=== PATIENT | female | born 1955 | race Caucasian/White ===

== ENCOUNTER 2019-03-15 07:17 | Emergency (ER) | payer OTHER, MEDICARE ==
--- NOTE | 2019-03-15 07:36 | PDOC ---
History of Present Illness - General Chief Complaint: Pain Stated Complaint: ABDOMINAL PAIN Time Seen by Provider: 03/15/19 07:36 History Source: Patient Exam Limitations: No Limitations - History of Present Illness Initial Comments: Pt is a 64 yo F, with PMH of stable thyroid nodules, stress incontinence, remote pill esophagitis and dermoid cyst removal, who is presenting with complaints of diffuse lower abdominal pain x4 days, which is worst in the LLQ and is intermittent. Pt states the pain is worsened mildly after eating food, but has been tolerating PO food and fluid intake as usual. Pt also endorses decreasing BMs in this time period, with passing of "just mucus" last night, with no bleeding. Pt endorses urinary frequency more than baseline, but denies hematuria or burning. Pt denies any recent fevers/chills, headache, vision changes, syncope, chest pain, palpitations, SOB, nausea/vomiting, diarrhea, or leg swelling. Allergies: NKDA PCP: Dr. Dodge GI: Dr. Higginbotham -- spoke with pt, suggested pt come to ER for diverticulitis w/ u and is aware. Social: Pt denies any cigarette, alcohol, or drug use. Pt denies any recent travel or sick contacts. Surgical: remote lap dermoid cyst removal Family: no relevant history. 03/15/19 08:03 Past History - Travel Traveled outside of the country in the last 30 days: No Close contact w/someone who was outside of country & ill: No - Past Medical History Allergies/Adverse Reactions: Allergies Allergy/AdvReac Type Severity Reaction Status Date / Time No Known Allergies Allergy Verified 03/15/19 07:49 Home Medications: Ambulatory Orders Ciprofloxacin [Cipro -] 500 mg PO Q12H 7 Days #14 tablet 03/15/19 metroNIDAZOLE [Flagyl -] 500 mg PO TID #21 tablet 03/15/19 Review of Systems - Review of Systems Able to Perform ROS?: Yes Is the patient limited Kinyarwanda proficient: No Constitutional: Yes: Weight Stable. No: Chills, Diaphoresis, Fever, Loss of Appetite, Malaise, Weakness HEENTM: No: Recent change in vision, Nose Congestion, Throat Pain, Throat Swelling, Difficulty Swallowing Respiratory: No: Cough, Orthopnea, Shortness of Breath Cardiac (ROS): No: Chest Pain, Edema, Irregular Heart Rate, Lightheadedness, Palpitations, Syncope, Chest Tightness ABD/GI: Yes: Constipated. No: Diarrhea, Nausea, Poor Appetite, Poor Fluid Intake, Vomiting, Indigestion, Abdominal cramping : Yes: Frequency. No: Burning, Dysuria, Flank Pain, Hematuria, Pain, Urgency Musculoskeletal: No: Back Pain, Joint Pain, Muscle Pain, Muscle Weakness Integumentary: No: Rash Neurological: No: Headache, Numbness, Weakness, Unsteady Gait, Dizziness Psychiatric: No: Sleep Pattern Change, Change in Appetite Endocrine: No: Increased Urine, Change in Weight Hematologic/Lymphatic: No: Anemia, Blood Clots, Easy Bleeding, Easy Bruising All Other Systems: Reviewed and Negative *Physical Exam - Physical Exam Comments: Vitals stable, pt afebrile. Pt in NAD, ambulatory in ED. Normal body habitus. Pt alert and oriented x3. water tester generally intact, muscular strength and sensation intact. No midline spinal tenderness, step-offs, or crepitus. Head normocephalic, atraumatic. Eyes PERRLA, EOMI. Oropharynx without erythema or exudates, no LAD b/l. No nasal congestion. Hearing intact. Clear heart sounds, S1/S2, no JVD, b/l pedal edema, or heart murmur. Clear lung sounds, no respiratory distress, wheezes, crackles, or accessory muscle use. Lower abdominal TTP diffusely, worse in LLQ. No CVA tenderness to palpation, no rebound, no guarding. Abdomen soft, non-distended, and with hyperactive bowel sounds. Skin without jaundice or rash. 03/15/19 08:15 ED Treatment Course - LABORATORY CBC & Chemistry Diagram: 03/15/19 08:03 03/15/19 08:03 Medical Decision Making - Medical Decision Making Pt was seen at bedside, also will be seen by attending Dr. Leach. Pt presenting with diffuse lower abdominal pain, urinary frequency, and decreasing BMs, consistent story for diverticulitis vs UTI. Pt has no Afib, no HTN/DM, non- smoker, lower risk for ischemia. TTP also reproducible on exam. Will evaluate with labs, UA/urine culture, and CT abd/pelvis with IV contrast if renal function is sufficient. Provided 1 L IV NS and IV ofirmev for improvement of pain and hydration. Will continue to reassess pt and monitor for symptomatic improvement. 03/15/19 08:18 CBC and CMP WNL -- renal function WNL, also providing IVF hydration. Pt declined tylenol for pain UA without evidence of infection Pt going for CT abd/pelvis with IV contrast to evaluate for diverticulitis vs obstruction 03/15/19 08:53 CT abd/pelvis showed liver cyst--pt aware and follows with DR. Higginbotham; also showed acute diverticulitis. Providing first dose of PO cipro and flagyl in ER. Sent additional abx to pt pharmacy. Pt can f/u with PCP, strict return precautions provided with pt understanding. Attempted to call PCP office x3 to make him aware; busy signal at the office number, was unable to leave message. 03/15/19 10:33 Discharge - Discharge Information Problems reviewed: Yes Clinical Impression/Diagnosis: Diverticulitis Condition: Good Disposition: HOME - Admission No - Additional Discharge Information Prescriptions: Ciprofloxacin [Cipro -] 500 mg PO Q12H 7 Days #14 tablet metroNIDAZOLE [Flagyl -] 500 mg PO TID #21 tablet - Follow up/Referral Referrals: Yann Dodge MD [Staff Physician] - Lupillo Higginbotham MD [Staff Physician] - - Patient Discharge Instructions Patient Printed Discharge Instructions: DI for Diverticulitis Additional Instructions: You were seen in the ER today for abdominal pain. The results of your labs and imaging today showed diverticulitis and a liver cyst. Please follow-up with your primary care doctor and GI (Dr. Higginbotham) within 1-2 days to discuss your visit and make sure your symptoms have improved. Please return to the ER if you have any worsening pain, development of fevers or chills, loss of consciousness , inability to tolerate food or fluids, or any other concerns. I have sent medications to your pharmacy. Please take these medications as prescribed. - Post Discharge Activity
[2019-03-15 07:43] VITALS: BMI 28.3
[2019-03-15] MEDS ORDERED: SODIUM CHLORIDE 1,000 ML IV STA (07:56)
[2019-03-15] MEDS ORDERED: ACETAMINOPHEN 1000 MG/100 ML VIAL (NON FORMULARY) IVPB ONE (07:56)
--- NOTE | 2019-03-15 08:02 | PDOC ---
Attending Attestation - Resident Resident Name: Ely Jc - HPI HPI: 03/15/19 10:33 Pt presents to the ED complaining of diffuse lower abdominal pain along with increased flatulence and decreased appetite. Denies fever, nausea or vomiting. States that she has been tolerating PO, although with decreased appetite. Sent by Dr. Farley for rule out diverticulitis. - Physicial Exam PE: 03/15/19 10:43 Agree with resident exam. patient is well appearing and in no acute distress. Abdomen is soft, non tender, non distended without guarding or rebound. - Medical Decision Making 03/15/19 10:43 Pt presents to the ED complaining of diffuse abdominal pain. CT shows diverticulitis. BEcuase patient is tolerating PO and has no fever, will treat with cipro and flagyl and discharge home. Patient instructed to return to the ED for fever, nausea and vomiting, other worsening symptoms.
[2019-03-15 08:26] LABS: BASO % 0.5 % (0-2.0); EOS % 2.3 % (0-4.5); HEMATOCRIT 34.9 % (32.4-45.2); HEMOGLOBIN 11.9 GM/dL (10.7-15.3); MCH 29.5 pg (25.7-33.7); MEAN CELL VOLUME 86.6 fl (80-96); MEAN PLT VOLUME 7.5 fl (7.5-11.1); MONO % 8.9 % (3.8-10.2); NEUT % 75.3 % (42.8-82.8); PLATELET COUNT 421 K/MM3 (134-434); RBC 4.03 M/mm3 (3.60-5.2); WHITE BLOOD COUNT 8.9 K/mm3 (4.0-10.0)
[2019-03-15 08:47] LABS: EPI CELLS 1.2 /HPF (0-5/HPF); HYALINE CASTS 10 /lpf (0-8); PH,URINE 6.5 (5.0-8.0); URINE APPEARANCE CLEAR; URINE BACTERIA 0.3 /hpf (NEGATIVE); URINE BILIRUBIN NEGATIVE (NEGATIVE); URINE COLOR DK YELLOW; URINE GLUCOSE (UA) NEGATIVE (NEGATIVE); URINE KETONE TRACE (NEGATIVE); URINE LEUK ESTERASE NEGATIVE (NEGATIVE); URINE NITRITE NEGATIVE (NEGATIVE); URINE PROTEIN TRACE (NEGATIVE); URINE RBC 15 /hpf (0-4); URINE WBC 1 /hpf (0-5)
[2019-03-15 08:49] LABS: ALBUMIN 3.3 g/dl (3.4-5.0); BILIRUBIN,TOTAL 0.6 mg/dL (0.2-1); CALCIUM 9.2 mg/dL (8.5-10.1); CREATININE 0.7 mg/dL (0.55-1.3); POTASSIUM 4.3 mmol/L (3.5-5.1); TOT PROT 6.9 g/dl (6.4-8.2)
[2019-03-15] MEDS ORDERED: metroNIDAZOLE 250 MG TABLET PO ONE (10:27)
[2019-03-15] MEDS ORDERED: CIPROFLOXACIN 500 MG TABLET (RESTRICTED TO ID) PO ONE (10:27)
[2019-03-15] MEDS ORDERED: metroNIDAZOLE 250 MG TABLET ONE (10:47)
[2019-03-15 10:57] VITALS: BP 130/72; PULSE 89; TEMP 98.2
[2019-03-15] MEDS ORDERED: PT OWN MED DRAWER 7, Y5N ONE (11:11)
--- NOTE | 2019-03-15 13:12 | EKG ---
Test Reason : Blood Pressure : / mmHG Vent. Rate : 086 BPM Atrial Rate : 086 BPM P-R Int : 154 ms QRS Dur : 082 ms QT Int : 346 ms P-R-T Axes : 052 000 029 degrees QTc Int : 414 ms NORMAL SINUS RHYTHM POSSIBLE LEFT ATRIAL ENLARGEMENT LEFT VENTRICULAR HYPERTROPHY ABNORMAL ECG WHEN COMPARED WITH ECG OF 11-MAR-2018 08:30, NO SIGNIFICANT CHANGE WAS FOUND Confirmed by SHYLA LEDESMA MD ([id number]) on 03/15/2019 1:12:36 PM Referred By: Confirmed By:SHYLA LEDESMA MD
== END 2019-03-15 11:15 | disposition home or self-care (01) ==
LOC: JER 07:17
PROC: 3E0337Z Introduction of Electrolytic and Water Balance Substance into Peripheral Vein, Percutaneous Approach (ICD-10-PCS; principal; 2019-03-15)
DX: K57.92 Diverticulitis of intestine, part unspecified, without perforation or abscess without bleeding (principal); N39.3 Stress incontinence (female) (male); E04.1 Nontoxic single thyroid nodule
CPT/HCPCS: 36415; 74177-TC; 80053; 81003; 83690; 85025; 87086; 93005; 93010; 96360; 99284-25; J7030

== ENCOUNTER 2019-08-16 12:43 | Emergency (ER) | payer OTHER, MEDICARE ==
[2019-08-16 13:12] VITALS: BP 134/79; PULSE 114; TEMP 99.3; BMI 29.2
--- NOTE | 2019-08-16 13:13 | PDOC ---
Rapid Medical Evaluation Time Seen by Provider: 08/16/19 13:11 Medical Evaluation: Allergies Allergy/AdvReac Type Severity Reaction Status Date / Time No Known Allergies Allergy Verified 03/15/19 07:49 08/16/19 13:11 This patient had a rapid evaluation in triage cc: abdominal pain since yesterday HPI: Patient reports left lower quadrant pain since yesterday, seen at pmd's office sent to ed for work up for diverticulitis PE: NAD unlabored breathing + bowel sounds , soft non tender abdomen Orders: labs orders This patient will proceed to main ed for further evaluation Discharge Disposition - Diagnosis Abdominal pain - Referrals - Patient Instructions - Post Discharge Activity
--- NOTE | 2019-08-16 13:45 | PDOC ---
Attending Attestation - Resident Resident Name: Judit Grewal - HPI HPI: 08/16/19 15:45 Pt presents to the ED complaining of a one day history of diffuse abdominal pain. Also complains of fever to 101 in PCPs office. Tolerating PO. History of diverticulitis in the past. Complains of pain that increases when her bladder is full, but denies dysuria. - Physicial Exam PE: 08/16/19 15:51 Agree with resident exam. Patient is well appearing and in no acute distress. abdomen soft, non tender, non distended without guarding or rebound. 08/16/19 15:52 08/16/19 16:00 - Medical Decision Making 08/16/19 16:01 Pt presents to the ED complaining of abdominal pain and fever. Differential includes diverticulitis, less likely UTI, other intraabdominal pathology. will check labs and CT abdomen pelvis, reassess.
[2019-08-16] MEDS ORDERED: SODIUM CHLORIDE 0.9% 500 ML INFUS.BAG IV ONE (13:49)
[2019-08-16] MEDS ORDERED: ACETAMINOPHEN 1000 MG/100 ML VIAL (NON FORMULARY) IVPB ONE (13:58)
--- NOTE | 2019-08-16 13:58 | PDOC ---
History of Present Illness - General Chief Complaint: Pain Stated Complaint: SENT BY DOC Time Seen by Provider: 08/16/19 13:11 - History of Present Illness Initial Comments: 08/16/19 13:54 64 yo F with PMH of diverticulosis, diverticulitis (5months ago tx conservatively),stable thyroid nodules, stress incontinence, remote pill e sophagitis, dermoid cyst removal, recent lumbar spine surgery in march presents to the ED for Lower abdominal pain. Pain started yesterday afternoon; it is crampy, 7/10 at peak and 2/10 currently, non radiating, exacerbated by BM, and associated with headache, fever and chills. Pt also endorsed soft stool but no change in BM as pt is still on colace from her back surgery. She went to her PCP's office, Dr Dodge who recorded a temp of 101F this morning. She also complains of pain on urination otherwise denies any frequency, urgency or discharge. Pt admits that she does eat her vegetable but continues to consume nuts as it wasnt part of her dietary restrictions. She further denies N/V, chest pain, SOB, FND. PMH: as above PSH: lumbar spine surgery, dermoid cyst removal Social Hx: denies just social drinker ROS: Constitutional: fever, chills HEENT: no throat pain, no dysphagia Cardiovascular: no chest pain, no palpitations Respiratory: no cough, no shortness of breath Gastrointestinal: no Nausea, no vomiting Genitourinary: dysuria but no urgency no frequency Musculoskeletal: no myalgia, no arthralgia Skin: no bruising Neurologic: no weakness Psych: no agitation, no anxiety PE: VSS but temp of 101 at PCP office and 99F in ED GEN: NAD Neuro: CN 2-12 intact, motor strength 5/5 in all muscle groups, sensation intact throughout, 2+ reflexes in U&L extremities, gait normal HEENT: PERRLA, moist membrane, clear conjunctiva NECK: no JVD CHEST:vesicular breath sounds b/l no wheezing, no rales appreciated HEART:RRR, no murmur, rubs or gallop ABDOMEN: + BS, soft, lower abdominal tenderness L>R Extremities: 2+ pulses, no edema SKIN: no bruises MSK: no arthralgia, no joint tenderness Assessment: recurrent diverticulitis vs UTI vs pancreatitis Plan: CBC, CMP, UA, urine culture, ekg, CT A/P with IV &oral contrast, lipase 1L NS, 1gm of tylenol for pain control 08/16/19 14:24 CBC WBC 13.1 K/mm3 (4.0-10.0) H 08/16/19 14:00 RBC 4.49 M/mm3 (3.60-5.2) 08/16/19 14:00 Hgb 11.7 GM/dL (10.7-15.3) 08/16/19 14:00 Hct 35.3 % (32.4-45.2) 08/16/19 14:00 MCV 78.5 fl (80-96) L 08/16/19 14:00 MCH 26.0 pg (25.7-33.7) D 08/16/19 14:00 MCHC 33.1 g/dl (32.0-36.0) 08/16/19 14:00 RDW 18.3 % (11.6-15.6) H 08/16/19 14:00 Plt Count 327 K/MM3 (134-434) D 08/16/19 14:00 MPV 7.7 fl (7.5-11.1) 08/16/19 14:00 Absolute Neuts (auto) 10.6 K/mm3 (1.5-8.0) H 08/16/19 14:00 Neutrophils % 80.9 % (42.8-82.8) 08/16/19 14:00 Lymphocytes % 9.8 % (8-40) D 08/16/19 14:00 Monocytes % 8.1 % (3.8-10.2) 08/16/19 14:00 Eosinophils % 0.2 % (0-4.5) D 08/16/19 14:00 Basophils % 1.0 % (0-2.0) 08/16/19 14:00 Nucleated RBC % 0 % (0-0) 08/16/19 14:00 leukocytosis at 13.1 with left shift 08/16/19 14:32 UA negative for UTI 08/16/19 14:38 CMP Sodium 136 mmol/L (136-145) 08/16/19 14:00 Potassium 4.1 mmol/L (3.5-5.1) 08/16/19 14:00 Chloride 102 mmol/L (98-107) 08/16/19 14:00 Carbon Dioxide 28 mmol/L (21-32) 08/16/19 14:00 Anion Gap 6 MMOL/L (8-16) L 08/16/19 14:00 BUN 16.7 mg/dL (7-18) 08/16/19 14:00 Creatinine 0.7 mg/dL (0.55-1.3) 08/16/19 14:00 Est GFR (CKD-EPI)AfAm 104.64 08/16/19 14:00 Est GFR (CKD-EPI)NonAf 90.29 08/16/19 14:00 Random Glucose 109 mg/dL (74-106) H 08/16/19 14:00 Calcium 8.8 mg/dL (8.5-10.1) 08/16/19 14:00 Total Bilirubin 0.6 mg/dL (0.2-1) 08/16/19 14:00 AST 24 U/L (15-37) 08/16/19 14:00 ALT 27 U/L (13-61) 08/16/19 14:00 Alkaline Phosphatase 75 U/L (45-117) 08/16/19 14:00 Total Protein 7.0 g/dl (6.4-8.2) 08/16/19 14:00 Albumin 3.5 g/dl (3.4-5.0) 08/16/19 14:00 unremarkable. Cr 0.6 pt can proceed for [address] with contrast 08/16/19 17:10 CT A/P showed acute uncomplicated diverticulitis. given that pt vital signs are stable, pt is non toxix appearing and ambulating, diverticulitis is uncomplicated, pt can follow outpatient management of diverticulitis with ciprofloxacin 500mg BID and metronidazole 500mg TID for the next 7 days and with strict return instructions in discharge papers. 08/16/19 17:24 Past History - Past Medical History Allergies/Adverse Reactions: Allergies Allergy/AdvReac Type Severity Reaction Status Date / Time No Known Allergies Allergy Verified 08/16/19 13:12 Home Medications: Ambulatory Orders Ciprofloxacin [Cipro -] 500 mg PO Q12H #14 tablet 08/16/19 metroNIDAZOLE [Flagyl -] 500 mg PO Q8H #21 tablet 08/16/19 COPD: No GI Disorders: Yes (diverticulitis) - Psycho Social/Smoking Cessation Hx Smoking History: Never smoked Have you smoked in the past 12 months: No Hx Alcohol Use: No Drug/Substance Use Hx: No *Physical Exam - Vital Signs Last Vital Signs Temp Pulse Resp BP Pulse Ox 99.3 F 114 H 16 134/79 100 08/16/19 13:04 08/16/19 13:04 08/16/19 13:04 08/16/19 13:04 08/16/19 13:04 ED Treatment Course - LABORATORY CBC & Chemistry Diagram: 08/16/19 14:00 08/16/19 14:00 Medical Decision Making - Medical Decision Making CT A/P showed acute uncomplicated diverticulitis. given that pt vital signs are stable, pt is non toxix appearing and ambulating, diverticulitis is uncomplicated, pt can follow outpatient management of diverticulitis with ciprofloxacin 500mg BID and metronidazole 500mg TID for the next 7 days and with strict return instructions in discharge papers. Discharge - Discharge Information Problems reviewed: Yes Clinical Impression/Diagnosis: Diverticulitis Condition: Stable Disposition: HOME - Admission No - Additional Discharge Information Prescriptions: Ciprofloxacin [Cipro -] 500 mg PO Q12H #14 tablet metroNIDAZOLE [Flagyl -] 500 mg PO Q8H #21 tablet - Follow up/Referral Referrals: Yann Dodge MD [Primary Care Provider] - Call tomorrow Lupillo Higgibnotham MD [Staff Physician] - Call tomorrow (recurrent diverticulitis ) - Patient Discharge Instructions Patient Printed Discharge Instructions: DI for Diverticulitis Additional Instructions: You came to the emergency room because of lower abdominal pain and fever/chills. We tested you blood, tested your urine and scanned your abdomen. Your blood showed evidence of an infection somewhere in the body, your urine was negative for infection but your scan of the abdomen showed acute inflammation and infection of your colon. You will need to take the two antibiotics described below for the next 7 days. Please follow up with Dr Dodge within the next 3 days. Also follow up with your GI doctor Dr Higginbotham within one week for further evaluation. Please take the following over the next 10 day: take ciprofloxacin 500mg twice a day by mouth for the next 7 days also take metronidazole 500mg three time a day by mouth for the next 7 days. If you begin to experience worsening abdominal pain, bleeding rectally, fever, chills, nausea/vomiting, chest pain, shortness of breath please return to the emergency room immediately. - Post Discharge Activity
--- NOTE | 2019-08-16 14:01 | PDOC ---
*Physical Exam - Vital Signs Last Vital Signs Temp Pulse Resp BP Pulse Ox 99.3 F 114 H 16 134/79 100 08/16/19 13:04 08/16/19 13:04 08/16/19 13:04 08/16/19 13:04 08/16/19 13:04 ED Treatment Course - LABORATORY CBC & Chemistry Diagram: 08/16/19 14:00 08/16/19 14:00 Medical Decision Making - Medical Decision Making 08/16/19 13:55 Patient seen as pre-attending with Dr. Conti (Attending) and Dr. Grewal (PGY -1, Internal Medicine) 64 y/o female with a PMHx of laminectomy (07/2019), Fatty Liver Disease and Diverticulitis (2018) here with one day of abdominal cramping. Cramping is intermittent and in B/L lower quadrants. Symptoms exacerbated by bowel movements. Also c/o 1 day h/o dysuria w/o hematuria/increased urgency or frequency. No fevers/chills/nausea/vomiting/diarrhea/constipation. Last BM earlier today and was normal. Last PO intake yesterday evening at 7 p.m. VS unremarkable PE significant for B/L LQ TTP w/o peritoneal sign. Will evaluate for gastritis, cystitis, diverticulitis. Low clinical suspicion for acute abdomen including appendicitis, cholecystitis, SBO, mesenteric ischemia based on clinical presentation. Labs, CTAP, Fluids. Reassess. 08/16/19 17:11 Uncomplicated sigmoid diverticulitis on CT Patient reassessed @ bedside symptomatically improved s/p fluids and Tylenol Will d/c home with Cipro/[facility] f/u with PMD and GI Discharge - Discharge Information Problems reviewed: Yes Clinical Impression/Diagnosis: Diverticulitis Condition: Improved Disposition: HOME - Admission Yes - Follow up/Referral Referrals: Yann Dodge MD [Primary Care Provider] - - Patient Discharge Instructions - Post Discharge Activity
[2019-08-16] MEDS ORDERED: ACETAMINOPHEN INJECTION 100 ML IVPB ONE (14:14)
[2019-08-16 14:20] LABS: EOS % 0.2 % (0-4.5); HEMATOCRIT 35.3 % (32.4-45.2); HEMOGLOBIN 11.7 GM/dL (10.7-15.3); LYMPH % 9.8 % (8-40); MCHC 33.1 g/dl (32.0-36.0); MEAN CELL VOLUME 78.5 fl (80-96); MEAN PLT VOLUME 7.7 fl (7.5-11.1); MONO % 8.1 % (3.8-10.2); NEUT % 80.9 % (42.8-82.8); PLATELET COUNT 327 K/MM3 (134-434); RBC 4.49 M/mm3 (3.60-5.2); RDW 18.3 % (11.6-15.6); WHITE BLOOD COUNT 13.1 K/mm3 (4.0-10.0)
[2019-08-16 14:39] LABS: EPI CELLS 0.5 /HPF (0-5/HPF); HYALINE CASTS 1 /lpf (0-8); PH,URINE 6.5 (5.0-8.0); URINE APPEARANCE CLEAR; URINE BACTERIA 2.4 /hpf (NEGATIVE); URINE BILIRUBIN NEGATIVE (NEGATIVE); URINE COLOR YELLOW; URINE GLUCOSE (UA) NEGATIVE (NEGATIVE); URINE KETONE NEGATIVE (NEGATIVE); URINE LEUK ESTERASE NEGATIVE (NEGATIVE); URINE NITRITE NEGATIVE (NEGATIVE); URINE PROTEIN NEGATIVE (NEGATIVE); URINE RBC 9 /hpf (0-4); URINE UROBILINOGEN 0.2 mg/dL (0.2-1.0); URINE WBC 0 /hpf (0-5)
[2019-08-16 14:46] LABS: ALBUMIN 3.5 g/dl (3.4-5.0); BILIRUBIN,TOTAL 0.6 mg/dL (0.2-1); BLOOD UREA NITROGEN 16.7 mg/dL (7-18); CALCIUM 8.8 mg/dL (8.5-10.1); CREATININE 0.7 mg/dL (0.55-1.3); POTASSIUM 4.1 mmol/L (3.5-5.1)
== END 2019-08-16 17:42 | disposition home or self-care (01) ==
LOC: JER 12:43
PROC: 3E033NZ Introduction of Analgesics, Hypnotics, Sedatives into Peripheral Vein, Percutaneous Approach (ICD-10-PCS; principal; 2019-08-16)
DX: K57.92 Diverticulitis of intestine, part unspecified, without perforation or abscess without bleeding (principal); Z98.890 Other specified postprocedural states
CPT/HCPCS: 36415; 74177-TC; 80053; 81003; 82550; 82553; 83690; 84484; 85025; 87086; 96374; 99285-25; J0131; Q9967

== ENCOUNTER 2023-02-26 05:11 | Day surgery (SDC) | payer OTHER, MEDICARE ==
[2023-02-24 15:59] VITALS: BMI 29.0
[2023-02-26 12:14] VITALS: TEMP 97.7
[2023-02-26 12:38] VITALS: BP 118/69; PULSE 67; RESP 16
== END 2023-02-26 12:50 | disposition home or self-care (01) ==
LOC: JASU-ENDO 05:11
PROVIDERS: ATTEND Internal Medicine Gastroenterology
PROC: 0DBL8ZX Excision of Transverse Colon, Via Natural or Artificial Opening Endoscopic, Diagnostic (ICD-10-PCS; 2023-02-26)
PROC: 0DBN8ZX Excision of Sigmoid Colon, Via Natural or Artificial Opening Endoscopic, Diagnostic (ICD-10-PCS; 2023-02-26)
PROC: 0DBK8ZX Excision of Ascending Colon, Via Natural or Artificial Opening Endoscopic, Diagnostic (ICD-10-PCS; principal; 2023-02-26 11:00)
DX: Z12.11 Encounter for screening for malignant neoplasm of colon (principal); K63.5 Polyp of colon; K64.8 Other hemorrhoids; K57.30 Diverticulosis of large intestine without perforation or abscess without bleeding; Z98.0 Intestinal bypass and anastomosis status; Z80.0 Family history of malignant neoplasm of digestive organs